=== PATIENT | female | born 1955 | race Caucasian/White ===

== ENCOUNTER 2016-03-19 13:08 | Day surgery (SDC) | payer OTHER ==
[~2016-03-19] VITALS: Ht 154.9 cm; Wt 80.6 kg
[~2016-03-19 13:08] MED LIST: ACET325T33 PO; ASPI81TA3 PO; CIPR500T4 PO; CLB05O30 TOP; FLOV220 INHALATION; FLUT16SP17 NASAL; INSU100C SC; LANT3I SC; LORA10TA3 PO; METF500T4 PO; METR500T PO; MONT10TA24 PO; PRED20TA PO; PRO AIR HFA INHALATION; SMV40T PO; VERA240C4 PO
[2016-03-19 14:32] VITALS: Ht 154.9 cm; Wt 80.6 kg
[2016-03-19] MEDS ORDERED: PROPOFOL 60 ML ONE (15:32)
[2016-03-19 15:40] VITALS: BP 121/69; PULSE 95; RESP 18
[2016-03-19 16:18] VITALS: BP 128/64; PULSE 108; RESP 18
[2016-03-19 16:30] VITALS: BP 126/65; PULSE 98; RESP 13
[2016-03-19 16:35] VITALS: BP 124/65; PULSE 95; RESP 14
--- NOTE | 2016-03-19 21:21 | GILP ---
DATE OF PROCEDURE: NAME OF PROCEDURES: Colonoscopy, biopsy, and polypectomy. SURGEON: Martita Garcia MD PREOPERATIVE DIAGNOSES: 1. History of malignant colon polyp. 2. Change in the bowel habit. POSTOPERATIVE DIAGNOSES: 1. Colonoscopy all the way to the anastomotic area. 2. The patient had 3 small colon polyps and 2 of them were removed using the biopsy forceps and the other sigmoid polyp was removed using the snare and electrocautery. 3. Internal hemorrhoids. INDICATION FOR THE PROCEDURE: Ms. Elsy Sheriff is a 60-year-old female patient who had hist ory of malignant colon polyp removed with surgery. The patient was scheduled for a followup colonos copy. The procedure and possible complications are well explained to the patient. She understood and cons ented to the procedure. DESCRIPTION OF PROCEDURE: Under the influence of anesthesia, the colonoscope was carefully introduc ed in the rectum. Under direct vision, it was advanced all the way to the anastomotic site. FINDINGS: The patient had 3 small polyps, 2 in the proximal part of the colon and another one in th e sigmoid area. The 2 proximal colon polyps were removed using the biopsy forceps. The sigmoid karlos yp was removed using the snare and electrocautery. The patient was noted to have internal hemorrhoi ds and occasional diverticulosis of the colon. She tolerated the procedure very well and there was no complication from the procedure. At the end of the procedure, she was awake with stable vital signs and she was discharged home to the care of h er family. IMPRESSION: 1. Colonoscopy all the way to the anastomotic area. 2. Two small proximal colon polyps were removed using the biopsy forceps. 3. Sigmoid colon polyp was removed using the snare and electrocautery. 4. Internal hemorrhoids. 5. Occasional diverticulosis. PLAN: 1. Await histopathology report. 2. The patient will need next screening colonoscopy in 3 years. Dictated By: MARTITA GARCIA MD GD/CHRIS Conf#: [id number] DID#: [id number] CC: MARTITA GARCIA MD;*EndCC*
== END 2016-03-19 16:39 | disposition home or self-care (01) ==
LOC: GIL 13:08
PROVIDERS: ATTEND Internal Medicine Gastroenterology
DX: D12.5 Benign neoplasm of sigmoid colon (principal); D12.6 Benign neoplasm of colon, unspecified; K64.8 Other hemorrhoids; Z85.038 Personal history of other malignant neoplasm of large intestine; I10 Essential (primary) hypertension; E11.9 Type 2 diabetes mellitus without complications; E66.01 Morbid (severe) obesity due to excess calories; Z68.33 Body mass index [BMI] 33.0-33.9, adult; Z88.0 Allergy status to penicillin
CPT/HCPCS: 45380; 45385; 82962; 88305; Z7610

== ENCOUNTER 2017-05-03 22:55 | Emergency (ER) | END 2017-05-04 06:30 | disposition home or self-care (01) ==

== ENCOUNTER 2018-03-11 09:35 | Day surgery (SDC) | payer OTHER ==
[~2018-03-11] VITALS: Ht 154.9 cm; Wt 82.4 kg
[~2018-03-11 09:35] MED LIST changes: -ACET325T33 PO; +ASPI-903 PO; -ASPI81TA3 PO; -CIPR500T4 PO; +DOCU-144 PO; +HYDR25SU23 PR; +METF-849 PO; -METF500T4 PO; -METR500T PO; -PRED20TA PO; +SIMV40TA3 PO; -SMV40T PO
[2018-03-11 10:41] VITALS: Ht 154.9 cm; Wt 82.4 kg
[2018-03-11] MEDS ORDERED: ALBU8.5H8 INH (10:47)
[2018-03-11] MEDS ORDERED: TRIA15CR55 TOP (10:47)
[2018-03-11] MEDS ORDERED: INSU100I33 SC (10:47)
[2018-03-11 11:03] VITALS: BP 134/73; PULSE 95; RESP 12
[2018-03-11] MEDS ORDERED: MIDAZOLAM 1 MG/ML 2 ML INJ ONE ×2 (12:27)
[2018-03-11] MEDS ORDERED: FENTAnyl 50 MCG/ML VIAL ONE (12:27)
== END 2018-03-11 11:45 | disposition home or self-care (01) ==
LOC: GIL 09:35
PROVIDERS: ATTEND Internal Medicine Gastroenterology
DX: D12.3 Benign neoplasm of transverse colon (principal); K64.8 Other hemorrhoids; I10 Essential (primary) hypertension; E11.9 Type 2 diabetes mellitus without complications
CPT/HCPCS: 45380; 82962; 88305; J2250; J3010; Z7610